=== PATIENT | male | born 1980 | race Caucasian/White ===

== ENCOUNTER 2017-04-13 10:00 | Emergency (ER) | payer OTHER ==
[~2017-04-13] VITALS: Ht 177.8 cm; Wt 79.4 kg
[2017-04-13 10:02] VITALS: BP 119/76
== END 2017-04-13 11:37 | disposition home or self-care (01) ==
LOC: ED 11:35
DX: I80.02 Phlebitis and thrombophlebitis of superficial vessels of left lower extremity (principal)